=== PATIENT | female | born 2005 | race Caucasian/White ===

== ENCOUNTER 2024-11-08 10:02 | Day surgery (SDC) | payer OTHER, MEDICAID, SELFPAY ==
[2024-11-08 10:16] VITALS: BMI 31.4
[2024-11-08 10:20] VITALS: BP 122/87; PULSE 88; RESP 20; TEMP 37.3; O2SAT 95
[2024-11-08 10:30] LABS: Ur HCG Qualitative* Negative (Negative)
[2024-11-08] MEDS: LACTATED RINGERS 1000 ML 1,000 ML 100 ML IV (10:30)
[2024-11-08] MEDS: SODIUM CHLORIDE 0.9 % (FLUSH) 10 ML SYRINGE IVF (10:39)
--- NOTE | 2024-11-08 11:13 | P.ANES_ITS ---
Anesthesia Charges Start Date/Time Anesthesia Start Date: 11/08/24 Anesthesia Start Time: 12:14 Stop Date/Time Anesthesia Stop Date: 11/08/24 Anesthesia Stop Time: 12:48 Coding CPT Codes CPT Codes: ANESTH VAGINAL PROCEDURES - 47568 ([id number]) P2 - PATIENT W/MILD SYST DISEASE, QK - CAGE UNLOADER 2-4 CNCRNT ANES PROC, QX - SUMATRA OPENER SVC W/ MD MED DIRECTION
--- NOTE | 2024-11-08 11:13 | W.ANESCHARGE ---
Anesthesia Charges Start Date/Time Anesthesia Start Date: 11/08/24 Anesthesia Start Time: 12:14 Stop Date/Time Anesthesia Stop Date: 11/08/24 Anesthesia Stop Time: 12:48 Coding CPT Codes CPT Codes: ANESTH VAGINAL PROCEDURES - 92689 ([id number]) P2 - PATIENT W/MILD SYST DISEASE, QK - RN SURGERY ICU 2-4 CNCRNT ANES PROC, QX - ORGAN PIPE VOICER SVC W/ MD MED DIRECTION
--- NOTE | 2024-11-08 11:58 | W.PM.H&PU ---
History & Physical Update History & Physical Update H&P Reviewed and patient assessed: No changes noted
[2024-11-08] MEDS: levonorgestreL (Mirena) IUD 1 EACH INTRAUTERI (12:31)
[2024-11-08] MEDS: SILVER NITRATE APPLICATOR 1 EACH STICK..EA. 3 EACH TOPICAL (12:32)
--- NOTE | 2024-11-08 12:42 | W.PM.GYNPROC ---
Procedure Note Date of procedure: 11/08/24 Will [facility] bill your pro fee for this procedure?: Yes Pre-op diagnosis: Mirena IUD in place for menses suppression, borderline developmental/cognitive delay, screening for cervical cancer, unable to complete pelvic exams in clinic. Post-op diagnosis: Same Procedure: Pelvic exam under anesthesia, pap smear collection, removal and replacement of Mirena IUD Anesthesia: MAC Complications: None Surgeon: Kusum Kim MD Estimated blood loss (mL): 10 Pathology: specimen obtained, sent to pathology (Pap smear) Condition: stable Disposition: same day Findings: Normal external genitalia, bimanual exam uterus midline, small, no adnexal masses. Procedure Description: OBJECTIVE: Vital signs as noted in the nursing notes. Labs: Urine HCG Negative. Gonorrhea and Chlamydia testing: not collected, not sexually active and negative physical exam. Allergies as noted in the nursing notes. Patient was taken to the OR were MAC anesthesia was administered without difficulty. She was placed in the dorsal lithotomy position with Mike type stirrups. An exam under anesthesia as described above. A sterile speculum was placed into vagina. Cervix visualized and IUD strings as well. A pap smear was performed of the endo- and ecto-cervix without difficulty. Cervix was then cleansed with Betadine. Utilizing a ring forceps was utilized to grasp IUD strings and with gentle traction device was completely removed. A tenaculum was placed. A sound was advanced through the external and internal os until it reached the fundus of the uterus, the depth was 7.5 cm. The sound was then withdrawn. The IUD was loaded in a sterile manner and advanced into position. The strings were visualized and cut to appropriate length. Tenaculum removed and silver nitrate utilized for management of mild bleeding, hemostasis secured. Complications encountered: none. Patient tolerated the procedure well. The patient will go home after recovering from anesthesia and meeting all the criteria for discharge. She was given instruction regarding follow-up visit in 2 weeks at [facility].
[2024-11-08 12:45] VITALS: BP 108/69; PULSE 75; RESP 16; TEMP 36.7; O2SAT 93
[2024-11-08 13:00] VITALS: BP 117/76; PULSE 66; RESP 16; O2SAT 96
[2024-11-08 13:15] VITALS: BP 124/88; PULSE 73; RESP 16; O2SAT 98
[2024-11-08 13:31] VITALS: BP 116/76; PULSE 70; RESP 16; O2SAT 97
--- NOTE | 2024-11-08 13:39 | P.ANES_ITS ---
Anesthesia Charges Start Date/Time Anesthesia Start Date: 11/08/24 Anesthesia Start Time: 12:14 Stop Date/Time Anesthesia Stop Date: 11/08/24 Anesthesia Stop Time: 12:48 Coding CPT Codes CPT Codes: ANESTH SURG LOWER ABDOMEN - 91917 ([id number]) P2 - PATIENT W/MILD SYST DISEASE, QX - VISUALLY IMPAIRED TEACHER SVC W/ MD MED DIRECTION, QK - TAB BUILDER 2-4 CNCRNT ANES PROC
--- NOTE | 2024-11-08 13:39 | W.ANESCHARGE ---
Anesthesia Charges Start Date/Time Anesthesia Start Date: 11/08/24 Anesthesia Start Time: 12:14 Stop Date/Time Anesthesia Stop Date: 11/08/24 Anesthesia Stop Time: 12:48 Coding CPT Codes CPT Codes: ANESTH SURG LOWER ABDOMEN - 13222 ([id number]) P2 - PATIENT W/MILD SYST DISEASE, QX - ICE CREAM DISPENSER SVC W/ MD MED DIRECTION, QK - CONTINUOUS IMPROVEMENT ENGINEER 2-4 CNCRNT ANES PROC
== END 2024-11-08 13:45 | disposition home or self-care (01) ==
PROVIDERS: PCP Physician Assistant Medical; Visit Provider Obstetrics & Gynecology
PROC: (CPT 58301; principal; 2024-11-08 11:30)
DX: Z30.433 Encounter for removal and reinsertion of intrauterine contraceptive device (principal); Z12.4 Encounter for screening for malignant neoplasm of cervix; R62.59 Other lack of expected normal physiological development in childhood
CPT/HCPCS: 58301; 58300; 57410; 00840; 00940; 81025; 88141; 88142; A9270; J1885; J2250; J2704; J3010; J7120; J7298